=== PATIENT | female | born 1990 | race Caucasian/White ===

== ENCOUNTER → 2018-08-08 | Outpatient (CLI) | payer MEDICAID ==
--- NOTE | 2018-08-08 13:56 | US ---
EXAMINATION TYPE: US transvaginal DATE OF EXAM: 08/08/2018 COMPARISON: CLINICAL HISTORY: CHECK IUD PLACEMENT Z30.431. IUD placement TECHNIQUE: Transvaginal (TV). Date of LMP: 07/26/2018 EXAM MEASUREMENTS: Uterus: 6.2 x 4.5 x 3.0 cm Endometrial Stripe: 0.2m Right Ovary: 2.7 x 1.7 x 1.8 Left Ovary: 3.0 x 1.5 x 1.6 1. Uterus: Anteverted wnl 2. Endometrium: IUD visualized 3. Right Ovary: wnl 4. Left Ovary: wnl 5. Bilateral Adnexa: wnl 6. Posterior cul-de-sac: no free fluid Cervix- fluid seen within cervical canal IMPRESSION: 1. IUD is appropriately placed. 2. Small amount of fluid within the endocervical canal.
== END | disposition home or self-care (01) ==
LOC: RADUSWWP 12:56
PROVIDERS: ATTEND Obstetrics & Gynecology
DX: Z30.431 Encounter for routine checking of intrauterine contraceptive device (principal)
CPT/HCPCS: 76830

== ENCOUNTER → 2021-10-10 | Outpatient (CLI) | payer OTHER ==
--- NOTE | 2021-10-10 10:00 | US ---
EXAMINATION TYPE: US transvaginal DATE OF EXAM: 10/10/2021 COMPARISON: 08/08/2018 CLINICAL HISTORY: 31-year-old female R68.89 abnormal pelvic exam, N92.1 metrorrhagia. TECHNIQUE: Transvaginal (TV). Date of LMP: 09-27-21 FINDINGS: EXAM MEASUREMENTS: Uterus: 6.2 x 3.2 x 4.9 cm Endometrial Stripe: 0.2 cm Right Ovary: 3.5 x 2.2 x 2.2 cm Left Ovary: 1.7 x 1.1 x 1.1 cm 1. Uterus: Anteverted, IUD placement appears a properly positioned.. Some fluid is incidentally note d within the endocervical canal. 2. Endometrium: wnl 3. Right Ovary: slightly irregular shaped simple cyst measuring 1.7 x 1.0 x 1.4cm 4. Left Ovary: wnl 5. Bilateral Adnexa: wnl 6. Posterior cul-de-sac: wnl IMPRESSION: 1. Some incidental fluid along the endocervical canal. 2. IUD appears appropriately situated within the uterine cavity. 3. A collapsing/recently ruptured cyst or follicle measuring 1.7 cm and the right ovary.
== END | disposition home or self-care (01) ==
LOC: RADUSWWP 08:59
PROVIDERS: ATTEND Obstetrics & Gynecology
DX: N83.201 Unspecified ovarian cyst, right side (principal)
CPT/HCPCS: 76830